=== PATIENT | male | born 1995 | race African-American/Black ===

== ENCOUNTER 2018-09-22 18:38 | Emergency (ER) | payer OTHER ==
[~2018-09-22] VITALS: Ht 185.4 cm; Wt 65.8 kg
[2018-09-22 19:50] LABS: URINE BILIRUBIN NEGATIVE (Negative); URINE BLOOD NEGATIVE (Negative); URINE CLARITY CLEAR; URINE COLOR YELLOW; URINE GLUCOSE-RANDOM TRACE (Negative); URINE KETONES NEGATIVE (Negative); URINE LEUKOCYTES-REFLEX NEGATIVE (Negative); URINE NITRITE-REFLEX NEGATIVE (Negative); URINE PROTEIN NEGATIVE (Negative); URINE SPECIFIC GRAVITY 1.025 (1.005-1.030); URINE UROBILINOGEN 0.2 E.U./dl (0.2-1.0)
[2018-09-22 20:19] VITALS: BP 136/78
== END 2018-09-22 20:20 | disposition home or self-care (01) ==
LOC: M.ERS 18:38
PROVIDERS: Nurse Practitioner Family
DX: K64.4 Residual hemorrhoidal skin tags (principal); E74.8 Other specified disorders of carbohydrate metabolism

== ENCOUNTER 2018-10-09 17:43 | Emergency (ER) | payer OTHER ==
[~2018-10-09] VITALS: Ht 185.4 cm; Wt 65.8 kg
[2018-10-09] MEDS ORDERED: TRAMADOL 50 MG50 MG PO (18:30)
[2018-10-09] MEDS ORDERED: KEFLEX500 M1 PO (18:30)
[2018-10-09 18:51] VITALS: BP 169/104
== END 2018-10-09 18:51 | disposition home or self-care (01) ==
LOC: M.ERS 17:43
DX: T33.831A Superficial frostbite of right toe(s), initial encounter (principal); W93.2XXA Prolonged exposure in deep freeze unit or refrigerator, initial encounter; Y93.89 Activity, other specified; Y92.89 Other specified places as the place of occurrence of the external cause; Y99.8 Other external cause status

== ENCOUNTER 2018-10-11 18:29 | Emergency (ER) | payer OTHER ==
[~2018-10-11] VITALS: Ht 185.4 cm; Wt 65.8 kg
[~2018-10-11 18:29] MED LIST: KEFLEX500 M1 PO; TRAMADOL 50 MG50 MG PO
[2018-10-11] MEDS ORDERED: ACETAMINOPHEN-1 EAC1 PO (19:39)
[2018-10-11 20:14] VITALS: BP 135/81
== END 2018-10-11 20:15 | disposition home or self-care (01) ==
LOC: M.ERS 18:29
DX: T33.831A Superficial frostbite of right toe(s), initial encounter (principal); X58.XXXA Exposure to other specified factors, initial encounter

== ENCOUNTER 2018-10-18 12:39 | Inpatient (IN) | payer OTHER ==
[~2018-10-18] VITALS: Ht 185.4 cm; Wt 65.3 kg
--- NOTE | ~2018-10-18 | CON ---
[address] [address] CONSULTATION Name: NITESH DASILVA Room: [address] IN ..#: [id number] Admission: 10/18/18 Attend Phys: Nena Zuleta MD Discharge: Date of : 89 Report #: [id number] THIS REPORT FOR: //name// CC: KATHRINE physician/PCP Nena Zuleta DATE OF SERVICE: 10/19/2018 CHIEF COMPLAINT: Frostbite to right distal foot with cellulitis. HISTORY OF PRESENT ILLNESS: A 23-year-old male admitted through the Emergency Department with worsening pain and discoloration to his right distal toes. He reports that he was power washing an industrial freezer in [facility] and had a hole in the shoe which precipitated frostbite. He was recently treated and placed on oral Keflex on 10/09/2018, with no improvement. He relates the pain 9/10, mostly at the first, second and third toes. He does relate significant alcohol use. I reviewed his past medical history in the medical record. LABORATORY DATA: WBC 6.3, RBC 4.70, hemoglobin 13.5, hematocrit 40.7 and platelets 217,000. BUN 11, creatinine 1.0 and glucose 97. PHYSICAL EXAMINATION: The right first, second and third toes are inflamed, with bullous exfoliation of the superficial epidermis. There is no drainage or culturable material. Upon debridement of the bulla, there is viable dermal tissue, with no exposed bone or tendon. The feet are warm to the touch, with strong dorsalis pedis and posterior tibial pulses. The inflammation is localized to the right first, second and third toes, with the first and second toes being the most affective. They are tender to palpation. He can flex and extend them. IMPRESSION: Frostbite, right first, second and third toes with cellulitis. PLAN: I trimmed some loose skin off the right first and second toes. The toes were cleansed and dressed with foam and Kerlix gauze. He may ambulate in a surgical shoe as tolerated. No surgical intervention is anticipated. Continue antibiotics per Infectious Disease. By: [id number] Zaidi DPM /wang
--- NOTE | ~2018-10-18 | CON ---
[address] [address] CONSULTATION Name: NITESH DASILVA Room: [address] IN ..#: [id number] Admission: 10/18/18 Attend Phys: Nena Zuleta MD Discharge: Date of : 94 Report #: [id number] THIS REPORT FOR: //name// CC: KATHRINE physician/PCP Nena Zuleta DATE OF SERVICE: 10/21/2018 CHIEF COMPLAINT: Followup of frostbite to right distal first, second and third toes with desquamation. He is on p.o. Augmentin 875 mg p.o. b.i.d. with good tolerance. He had been afebrile with stable vitals. He relates low-grade pain to the toes, he did not require pain medication this morning. Wound care consists of topical foam with Kerlix gauze and a surgical shoe for offloading. LABORATORY DATA: WBC 5.0, RBC 4.76, hemoglobin 13.5, hematocrit 41.1, platelets 212. BUN 9, creatinine 1.1, glucose 111. PHYSICAL EXAMINATION: Temperature 97.8, pulse 77, respirations 14, blood pressure 148/98. There is a full-thickness wound to the dorsal aspect of the right hallux that measures 3.0 x 2.5 x 0.1 cm, red granulation with no exposed bone, tendon or joint. Low-grade inflammation and edema consistent with frostbite with no lottie cellulitis. The skin to the distal hallux and plantar aspect as well as the adjacent second and third toes are intact, but consistent with frostbite injury with some decreased coloration. It appears that the superficial layer of the epidermis will likely exfoliate during the healing process. Strong pedal pulses. No signs of vascular embarrassment. IMPRESSION: Frostbite right 1st, 2nd, 3rd toes. PLAN: The wound in foot was cleansed and dried. It was dressed with silver foam and Kerlix gauze. He is to minimize ambulation and off load in a surgical shoe. I am going to follow up with him next week at [facility]. By: [id number] Zaidi DPM /wang
[~2018-10-18 12:39] MED LIST changes: +ACETAMINOPHEN-1 EAC1 PO
[2018-10-18 12:47] VITALS: BP 141/89
[2018-10-18 13:21] LABS: HEMATOCRIT 44.4 % (42.0-52.0); HEMOGLOBIN 14.8 gm/dL (14.0-18.0); MCH 28.9 pg (26.0-34.0); MCHC 33.3 g/dL (28.0-37.0); MONOCYTES 4.8 %; MPV 7.5 fl. (7.2-11.1); PLATELET COUNT* 286 thou/uL (150-400); POLYS 59.4 %; RBC 5.11 mil/uL (4.50-6.00); RDW-CV 14.3 % (10.5-14.5); WBC 6.5 thou/uL (4.0-11.0)
[2018-10-18 13:22] LABS: ABSOLUTE EOSINOPHILS 0.1 thou/uL (0.0-0.7); ABSOLUTE LYMPHOCYTES 2.2 thou/uL (0.8-5.3); ABSOLUTE MONOCYTES 0.3 thou/uL (0.0-1.2); ABSOLUTE NEUTROPHILS 3.9 thou/uL (1.6-8.1); BASOPHILS 0.8 %; NUCLEATED RBCS 0 /100WBC
[2018-10-18 13:30] LABS: APTT 26.9 Seconds (25.0-31.3); PROTIME 9.9 Seconds (9.20-11.50)
[2018-10-18 13:34] LABS: ALBUMIN 3.8 g/dL (3.4-5.0); CALCIUM 8.4 mg/dL (8.5-10.1); CREATININE 1.1 mg/dL (0.6-1.3); POTASSIUM 4.2 mmol/L (3.5-5.1); TOTAL BILIRUBIN 0.1 mg/dL (<0.1-1.0); TOTAL PROTEIN 7.8 g/dL (6.4-8.2)
[2018-10-18 14:25] VITALS: BP 148/98
[2018-10-18 15:01] VITALS: BP 132/88
--- NOTE | 2018-10-18 18:44 | NUR ---
PATIENT ARRIVED TO UNIT AT APPROX 1400. ALERT AND OREINTED X4. ASSESSMENT COMPLETED AND CHARTED. VSS ON ROOM AIR. NO COMPLAINTS OF NAUSEA OR SOA. PAIN HAS BEEN MANAGED WITH ORAL AND IV MEDICATION. ANTIBIOTS INFUSED ORDERED. BANANA BAG STARTED AND CIWA PROTOCOL IN PLACE. PATIENT UP AD LAURA. HOURLY ROUNDS COMPLETED. CALL LIGHT WITHIN REACH. HOURLY ROUNDS COMPLETED. NURSING WILL CONTINUE TO MONITOR.
[2018-10-18 19:11] LABS: URINE BILIRUBIN NEGATIVE (Negative); URINE BLOOD NEGATIVE (Negative); URINE CLARITY CLEAR; URINE COLOR YELLOW; URINE GLUCOSE-RANDOM NEGATIVE (Negative); URINE KETONES NEGATIVE (Negative); URINE LEUKOCYTES-REFLEX NEGATIVE (Negative); URINE NITRITE-REFLEX NEGATIVE (Negative); URINE PROTEIN NEGATIVE (Negative); URINE UROBILINOGEN 0.2 E.U./dl (0.2-1.0)
[2018-10-18 19:35] VITALS: BP 129/72
[2018-10-18 21:06] LABS: AMP/METHAMP Negative (Negative); BARBITURATES Negative (Negative); BENZODIAZEPINES Negative (Negative); COCAINE Negative (Negative); METHADONE Negative (Negative); OPIATES POSITIVE (Negative); PCP Negative (Negative); THC POSITIVE (Negative)
[2018-10-19] VITALS: BP 142/84
[2018-10-19 03:55] LABS: ABSOLUTE EOSINOPHILS 0.1 thou/uL (0.0-0.7); ABSOLUTE LYMPHOCYTES 1.8 thou/uL (0.8-5.3); ABSOLUTE MONOCYTES 0.4 thou/uL (0.0-1.2); ABSOLUTE NEUTROPHILS 3.9 thou/uL (1.6-8.1); BASOPHILS 0.5 %; EOSINOPHILS 2.2 %; HEMATOCRIT 40.7 % (42.0-52.0); HEMOGLOBIN 13.5 gm/dL (14.0-18.0); LYMPHOCYTES 29.1 %; MCH 28.8 pg (26.0-34.0); MCHC 33.3 g/dL (28.0-37.0); MCV 86.5 fL (80.0-100.0); MONOCYTES 6.3 %; MPV 7.8 fl. (7.2-11.1); NUCLEATED RBCS 0 /100WBC; PLATELET COUNT* 217 thou/uL (150-400); POLYS 61.9 %; RDW-CV 14.2 % (10.5-14.5); WBC 6.3 thou/uL (4.0-11.0)
[2018-10-19 04:00] VITALS: BP 129/78
[2018-10-19 04:10] LABS: CALCIUM 8.3 mg/dL (8.5-10.1); MAGNESIUM 1.9 mg/dL (1.8-2.4); POTASSIUM 4.3 mmol/L (3.5-5.1)
--- NOTE | 2018-10-19 05:03 | NUR ---
REPORT RECEIVED FROM OFF-GOING SHIFT, CARE ASSUMED. AAO X4. DENIES PAIN OR SOB. VSS. CIWA 1,2,2 THIS SHIFT. NO ACUTE CHANGES DURING SHIFT. PT NPO, WAS EDUCATED AND VERBALIZED UNDERSTANDING. WILL CONTINUE TO MONITOR.
--- NOTE | 2018-10-19 11:50 | CON ---
[address] [address] CONSULTATION Name: NITESH DASILVA Room: [address] IN M.R.#: [id number] Admission: 10/18/18 Attend Phys: Nena Zuleta MD Discharge: Date of : 89 Report #: [id number] THIS REPORT FOR: //name// CC: FAM physician/PCP Nena Zuleta DATE OF SERVICE: 10/18/2018 ATTENDING PHYSICIAN: Dr. Zuleta. REASON FOR EVALUATION: Right foot inflammatory eruption, perhaps a component of underlying frostbite. HISTORY OF PRESENT ILLNESS: Chart reviewed, patient examined. The patient is a 23-year-old who has had ongoing issues with his right foot, in particular focus on the right great toe, although it extends to the other toes as well. There are some skin changes. He has got significant pain. He did suspect 10/09 when he was cleaning out of the freezer while working at [employer]. He does note he had a hole in his boot, initially had pain, however, over the course of 7 days, had increasing color changes, suggestion of cutaneous infarct. He was evaluated, treated as an outpatient with antibiotics, seemed not to have a change the course of it. It is not clear if he had fevers or chills. Appetite has generally been okay. No pulmonary or gastrointestinal related complaints. He was admitted due to concern about possible progressive necrosis. It is notable he has a significant amount of recent ethanol use as well. Plain films were done serially on 10/09, was otherwise unremarkable. Right foot again today, arterial Dopplers are pending, empirically started on vancomycin and Zosyn. ALLERGIES: None known. MEDICATIONS: Currently include the above noted antibiotics, thiamine, zinc, ascorbic acid, famotidine, p.r.n. analgesics and antiemetics. PAST MEDICAL HISTORY: Otherwise, unremarkable. SOCIAL HISTORY: Nonsmoker. No illicit drug use. He does drink alcohol. FAMILY HISTORY: Noncontributory. REVIEW OF SYSTEMS: Otherwise unremarkable review of systems except noted in the above history of present illness. PHYSICAL EXAMINATION: VITAL SIGNS: Temperature 98, pulse 91, respirations 18, blood pressure 132/88. GENERAL: He is alert, cooperative, appropriate. [place] [address] CONSULTATION Name: NITESH DASILVA Room: [address]#: [id number] Admission: 10/18/18 Attend Phys: Nena Zuleta MD Discharge: Date of : 89 Report #: [id number] his breath, appear to be in [id number] distress. HEENT: Normocephalic. Extraocular muscles intact. NECK: Supple. LUNGS: Clear to auscultation. HEART: Regular rate and rhythm without murmur. ABDOMEN: Soft, nontender, not distended. EXTREMITIES: Right distal lower extremity has some tissue loss on the great toe. There is some discoloration with what appears to be some cutaneous necrosis with blackened tissue over the remainder of the other toes. Foot appears to be preserved. There is actually the pulses are quite easily palpable, of course, the dorsalis pedis and posterior tibial. He is fairly warm to touch. There is no purulence, no odor. GENITOURINARY: Deferred. RECTAL: Deferred. LABORATORY DATA: CBC: White count of 6.5, H and H 14.8 and 44.4, platelets of 286. Electrolytes: Sodium 142, potassium 4.2, chloride 103, bicarbonate is 33, anion gap of 6, BUN and creatinine 10 and 1.1, glucose of 100. LFTs unremarkable. Albumin of 3.8. Total protein 7.8, estimated GFR 100, PT of 9.9, INR of 1.0. Lactic acid 1.8. Alcohol level was 263. ASSESSMENT: There is a right foot tissue necrosis involving distal aspects including most infection of the right great toe, subsequent toes as well. Continue empiric antimicrobial therapy. Podiatry has been consulted. It is somewhat unusual to have this degree of injury at this time of year. We will discuss with Dr. Zaidi. If he does get deep/debridement cultures would be helpful. At this point, he is not overtly toxic. <ELECTRONICALLY SIGNED> By: Amrik Gallegos MD 10/19/18 1150 [id number] [id number] Gallegos MD /nt
--- NOTE | 2018-10-19 16:00 | NUR ---
PT.SITTING ON EDGE OF BED. WORKED WITH THERAPY EARLIER. HAS CRUTCHES IN ROOM. SAID HE LIVES WITH A ROOMATE IN [place]. HE IS INDEPENDENT. WORKS AT [employer]. HE IS OFF WORK UNTIL 10/25. HAS TO FOLLOW UP WITH WORKMANS COMP PRIOR TO RETURNING TO WORK. HE IS NOT SURE HOW TO DO THAT. 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
[2018-10-19 16:25] VITALS: BP 147/88
--- NOTE | 2018-10-19 18:09 | NUR ---
ASSUMED CARE OF PATIENT AT APPROX 0730. ALERT AND ORIENTED X4. ASSESSMENT COMPLETED AND CHARTED. VSS ON ROOM AIR. NO COMPLAINTS OF NAUSEA OR SOA. PAIN HAS BEEN MANAGED WITH ORAL AND IV MEDICATION. FLUIDS AND ANTIBIOTICS INFUSED ORDERED. PATIENT SEEN BY PODIOTRY AND INFECTIOUS DISEASE PHYSICIANS TODAY. UP WITH STAND BY ASSIST. WALKED THE UNIT WITH THERAPY TODAY AND DID VERY WELL. CIWA ASSESSMENTS COMPLETED, PATIENT SCORED ZERO THROUGHOUT SHIFT. HOURLY ROUNDS COMPLETED. CALL LIGHT WITHIN REACH. NURSING WILL CONTINUE TO MONITOR.
[2018-10-19 20:03] VITALS: BP 150/96
[2018-10-20] VITALS: BP 144/77
[2018-10-20 02:07] LABS: GLYCOHEMOGLOBIN (HGB A1C) 5.5 % (4.8-5.6)
[2018-10-20 04:00] VITALS: BP 146/97
[2018-10-20 04:17] LABS: CALCIUM 8.2 mg/dL (8.5-10.1); MAGNESIUM 1.6 mg/dL (1.8-2.4); PHOSPHORUS* 4.4 mg/dL (2.5-4.9); POTASSIUM 4.3 mmol/L (3.5-5.1)
--- NOTE | 2018-10-20 06:41 | NUR ---
NO SIGN OF WITHDRAWAL NOTED. NO BLEEDING ON THE RIGHT FOOT. PAIN IN THE EVENING AND MEDICATION GIVEN;NO MORE COMPLAIN
[2018-10-20 07:45] VITALS: BP 145/98
[2018-10-20 08:21] LABS: ABSOLUTE EOSINOPHILS 0.2 thou/uL (0.0-0.7); ABSOLUTE LYMPHOCYTES 1.8 thou/uL (0.8-5.3); ABSOLUTE MONOCYTES 0.3 thou/uL (0.0-1.2); ABSOLUTE NEUTROPHILS 2.7 thou/uL (1.6-8.1); BASOPHILS 0.8 %; EOSINOPHILS 4.1 %; HEMATOCRIT 41.1 % (42.0-52.0); HEMOGLOBIN 13.5 gm/dL (14.0-18.0); LYMPHOCYTES 35.5 %; MCH 28.3 pg (26.0-34.0); MCHC 32.9 g/dL (28.0-37.0); MCV 86.3 fL (80.0-100.0); MPV 8.6 fl. (7.2-11.1); NUCLEATED RBCS 0 /100WBC; PLATELET COUNT* 212 thou/uL (150-400); POLYS 53.6 %; RBC 4.76 mil/uL (4.50-6.00); RDW-CV 14.1 % (10.5-14.5)
[2018-10-20 08:27] LABS: ALBUMIN 3.1 g/dL (3.4-5.0); CALCIUM 8.7 mg/dL (8.5-10.1); CREATININE 1.1 mg/dL (0.6-1.3); POTASSIUM 4.3 mmol/L (3.5-5.1); TOTAL BILIRUBIN 0.4 mg/dL (<0.1-1.0); TOTAL PROTEIN 6.2 g/dL (6.4-8.2)
--- NOTE | 2018-10-20 08:58 | NUR ---
Following for d/c planning needs. Called [facility] and left message for department coordinator to return call re: bed availability today. Will remain available to assist as needed. Per previous CM note, pt has been declined at [facility].
[2018-10-20 17:22] VITALS: BP 146/99
--- NOTE | 2018-10-20 18:42 | NUR ---
PATIENT ALERT AND ORIENTED X 4. VITAL SIGNS STABLE ON ROOM AIR. UP AD LAURA IN ROOM. IV PATENT WITH FLUIDS INFUSING PER MAR. PAIN BEING MANAGED WITH PO MEDICATION. DENIES NAUSEA AT THIS TIME. DRESSING TO LEFT FOOT CLEAN/DRY/INTACT. HOURLY ROUNDS MAINTAINED THROUGHOUT THE SHIFT. CALL LIGHT WITHIN REACH. NURSING WILL CONTINUE TO MONITOR.
[2018-10-20 20:00] VITALS: BP 144/91
--- NOTE | 2018-10-21 06:35 | NUR ---
Alert and oriented x 4. The IV in his L hand was positional and only held up to the end of the zosyn infusion, so it was discontinued. Dr Witt had been here earlier in the shift and he had discontinued all his IV antibiotics. After the 3rd bag of IVF had infused his IV in his L antecubital was saline locked. He did start oral antibiotic last evening. His dressing was coming apart so it was changed. education was given about the imporatnce of wearing his surgical shoe and keeping his dressing clean. He denies pain or nausea. He is up independently in the room. He has slept well.
[2018-10-21 08:30] VITALS: BP 148/98
[2018-10-21 12:38] VITALS: BP 148/98
[2018-10-21] MEDS ORDERED: NORCO 5-325 TA1 EACH PO (12:47)
[2018-10-21 15:36] VITALS: BP 152/93
--- NOTE | 2018-10-21 17:05 | NUR ---
PATIENT ALERT AND ORIENTED X 4. VITAL SIGNS STABLE ON ROOM AIR. AFEBRILE. UP AD LAURA AND AMBULATING IN ROOM. IV PATENT AND SALINE LOCKED. PAIN BEING MANAGED WITH ORAL MEDICATION. DENIES NAUSEA AT THIS TIME. DR. ARMANDO CHANGED DRESSING TO RIGHT FOOT. PICTURES TAKEN. DRESSING TO RIGHT FOOT CLEAN/DRY/INTACT. HOURLY ROUNDS MAINTAINED THROUGHOUT THE SHIFT. CALL LIGHT WITHIN REACH. NURSING WILL CONTINUE TO MONITOR.
[2018-10-21] MEDS ORDERED: AUGMENTIN 875-1 EACH PO (18:19)
[2018-10-21 19:24] VITALS: BP 148/98
--- NOTE | 2018-10-21 19:25 | NUR ---
PATIENT DISCHARGED FROM UNIT AT 1900. ALERT AND ORIENTED X 4. VITAL SIGNS STABLE ON ROOM AIR. AFEBRILE. IV DISCONTINUED. DENIES PAIN AND NAUSEA AT THIS TIME. DISCHARGE INSTRUCTIONS, MEDICATION INFORMATION, AND SCRIPTS GIVEN TO PATIENT. LEFT WITH ALL BELONGINGS. PATIENT LEFT WITH GRANDMOTHER VIA CAR.
== END 2018-10-21 19:00 | disposition home or self-care (01) | DRG 603 ==
LOC: M.ERS 12:39 → M.ORTHSURG 13:53 → M.TBA-ER 13:53 → M.ORTHSURG 14:20
PROVIDERS: Internal Medicine; Nurse Practitioner Family; ADMIT Family Medicine
DX: L03.115 Cellulitis of right lower limb (principal); T34.831A Frostbite with tissue necrosis of right toe(s), initial encounter; F10.239 Alcohol dependence with withdrawal, unspecified; X31.XXXA Exposure to excessive natural cold, initial encounter; Y93.89 Activity, other specified; Y92.89 Other specified places as the place of occurrence of the external cause; Y99.8 Other external cause status

== ENCOUNTER → 2018-10-31 | Outpatient (CLI) | payer OTHER ==
[~2018-10-31] MED LIST changes: +AUGMENTIN 875-1 EACH PO; +NORCO 5-325 TA1 EACH PO
--- NOTE | 2018-11-01 13:51 | CON ---
[address] [address] CONSULTATION Name: NITESH DASILVA Room: [facility] JaredAndraeSumaya.#: [id number] Admission: 10/31/18 Attend Phys: Juliano Zaidi DPM Discharge: Date of : 89 Report #: [id number] THIS REPORT FOR: //name// CC: Juliano Zaidi [facility] physician/PCP DATE OF SERVICE: 10/31/2018 ATTENDING PHYSICIAN: Dr. Zaidi. HISTORY OF PRESENT ILLNESS: The patient returns today in followup, having had frostbite injury involving the distal aspect of the right lower extremity, specifically most involving the great toe and second toe. He did undergo operative debridement in the hospital. He is seen postoperative roughly 3 weeks. He generally is improved. Denies significant amount of pain and discomfort, although he does have intermittent appears to be a neuropathic type transient pain. He has not been systemically ill. His appetite has been good. He has been on Augmentin, apparently tolerating without difficulty. On examination, the foot actually appears to be markedly improved from previous. There is a new epithelial growth. There is a superficial ulceration involving the medial dorsal aspect of mid portion of his right great toe. Overall degree of inflammation is mild to moderate. ASSESSMENT: Stewart bite, complicated by infection. We will continue current therapy as prescribed with Augmentin. We will see him back in roughly 2 weeks. Continue to protect the wound with dressings. At this point, he is still off work, which I think is reasonable. He is to call if he has further difficulty or any evidence of adverse drug effect. <ELECTRONICALLY SIGNED> By: Amrik Gallegos MD 11/01/18 1351 [id number] [id number] Gallegos MD /nt
== END ==
LOC: M.WC 12:32
DX: L97.512 Non-pressure chronic ulcer of other part of right foot with fat layer exposed (principal); T33.831D Superficial frostbite of right toe(s), subsequent encounter; X58.XXXD Exposure to other specified factors, subsequent encounter

== ENCOUNTER → 2018-11-14 | Outpatient (CLI) | payer OTHER ==
--- NOTE | 2018-11-15 11:07 | CON ---
[address] [address] CONSULTATION Name: VIDYANITESHUS FLORES Room: [facility] JaredAndraeSumaya.#: [id number] Admission: 11/14/18 Attend Phys: Juliano Zaidi DPM Discharge: Date of : 89 Report #: [id number] THIS REPORT FOR: //name// CC: Juliano Zaidi FAM physician/PCP NO PCP DATE OF SERVICE: 11/14/2018 ATTENDING PHYSICIAN: Juliano Zaidi DPM He is seen in the outpatient wound care center at [place], [place]. The patient returns today in followup. He is status post frostbite injury to his right great toe, has undergone serial debridements. He continues to show improvement. At this point, he has completed the prescribed course of systemic antibiotics. On examination, he has a small residual dorsal great toe superficial ulceration. There are some changes that suggest perhaps vasospastic disease as well. He denies any direct pain on examination. He additionally denies any systemic illness. Frostbite injury to the right great toe with some residual ulcer and myopathy. We will continue off the antibiotics at this point. Continue wound care as prescribed by Dr. Zaidi, protect the foot and we will see as needed. <ELECTRONICALLY SIGNED> By: Amrik Gallegos MD 11/15/18 1107 1701 [id number] Gallegos MD /wang
== END ==
LOC: M.WC 05:07
DX: L97.512 Non-pressure chronic ulcer of other part of right foot with fat layer exposed (principal); T33.831D Superficial frostbite of right toe(s), subsequent encounter; X31.XXXD Exposure to excessive natural cold, subsequent encounter